=== PATIENT | female | born 1975 | race Caucasian/White ===

== ENCOUNTER → 2017-07-08 | Outpatient (CLI) | payer BC ==
[~2017-07-08] MED LIST: AMBIEN 10MG10 MG PO; LORATADINE10 MG PO; PRENATAL VITAMI1 TA5 PO
== END ==
LOC: MC.RAD 10:53
DX: N63.0 Unspecified lump in unspecified breast (principal)

== ENCOUNTER → 2023-12-12 | Outpatient (CLI) | payer BC | LOC: MC.RAD 10:04 | DX: Z12.31 Encounter for screening mammogram for malignant neoplasm of breast (principal) ==